=== PATIENT | female | born 1990 | race Caucasian/White ===

== ENCOUNTER 2017-05-29 13:57 | Outpatient (RCR) | payer OTHER ==
[~2017-05-29 13:57] MED LIST: DEPO-PROVER150 MG/M1 IM
== END 2017-06-08 13:48 | disposition still patient (30) ==
LOC: WSOH 13:57
DX: M25.561 Pain in right knee (principal)

== ENCOUNTER 2020-01-25 12:08 | Emergency (ER) | payer BC ==
[~2020-01-25] VITALS: Ht 172.7 cm; Wt 59.1 kg
[2020-01-25 12:15] VITALS: TEMP 98.1
[2020-01-25 12:35] LABS: COLLECTION METHOD CLEAN CATCH
[2020-01-25 12:42] LABS: MUCOUS Present /lpf; PH 7 (5-8); SQUAMOUS EPITHELIAL 0-2 /hpf; URINE APPEARANCE Clear; URINE BACTERIA None Seen /hpf; URINE BILIRUBIN Negative (NEGATIVE); URINE BLOOD Negative (NEGATIVE); URINE COLOR Yellow; URINE GLUCOSE Negative (NEGATIVE); URINE KETONE Negative (NEGATIVE); URINE LEUKOCYTE ESTERASE Negative (NEGATIVE); URINE NITRATE Negative (NEGATIVE); URINE PROTEIN(semi-quant) Negative (NEGATIVE); URINE RBC 0-2 /hpf; URINE UROBILINOGEN Negative (NEGATIVE)
[2020-01-25 13:03] LABS: BASO % 0.3 % (0.0-2.0); EOS # 0.1 (0.0-0.7); EOS % 0.7 % (0-4.0); GRAN # 4.9 (1.4-6.5); GRAN % 71.6 % (42.2-75.2); HEMOGLOBIN 13.1 g/dl (12.5-16.0); LYMPH # 1.3 (1.2-3.4); LYMPH % 19.2 % (20.0-51.0); MEAN CELL VOLUME 88 fl (80.0-100.0); MEAN CORPUSCULAR HEMOGLOBIN 29 pg (27.0-31.0); MEAN CORPUSCULAR HGB CONC 33 g/dl (33.0-37.0); MONO # 0.5 (0.1-0.6); MONO % 7.9 % (1.7-9.3); PLATELET COUNT 215 K/mm3 (130-400); RED BLOOD COUNT 4.53 M/mm3 (4.10-5.30); REDCELL DISTRIBUTION WIDTH-CV 13.2 % (11.5-14.5)
[2020-01-25 13:13] LABS: ALBUMIN 4.6 gm/dL (3.5-5.0); BILIRUBIN,TOTAL 0.4 mg/dL (0.0-1.0); C-REACTIVE PROTEIN 0.7 mg/dL (0.0-0.9); CALCIUM 9.8 mg/dL (8.4-10.2); CREATININE, serum 0.51 (0.52-1.25); TOTAL PROTEIN 7.6 gm/dL (6.4-8.2)
[2020-01-25] MEDS ORDERED: ULTRAM 50MG TAB50 MG PO (14:09)
[2020-01-25] MEDS ORDERED: ZOFRAN 4MG T4 MG/TAB PO (14:09)
[2020-01-25] MEDS ORDERED: NAPROSYN500 MG PO (14:10)
[2020-01-25 14:31] VITALS: BP 103/61; PULSE 74
== END 2020-01-25 14:36 | disposition home or self-care (01) ==
LOC: COL.ER 12:08
PROVIDERS: Nurse Practitioner Primary Care
DX: R10.32 Left lower quadrant pain (principal); F17.210 Nicotine dependence, cigarettes, uncomplicated; Z98.890 Other specified postprocedural states; Z90.89 Acquired absence of other organs
CPT/HCPCS: J1885; J2405; J7030; Q9967

== ENCOUNTER 2024-01-12 21:22 | Day surgery (SDC) | payer BC ==
[~2024-01-12] VITALS: Ht 172.7 cm; Wt 85.0 kg
[~2024-01-12 21:22] MED LIST changes: +ABILIFY 10MG TA10 MG PO; +CELEBREX 200MG200 MG PO; +CIPRO 500MG TA500 MG PO; +FLAGYL500 MG PO; +NAPROSYN500 MG PO; +NORCO 325 MG-51 TAB PO; +ONE DAILY ESSE0.5 MG PO; +PROTONIX20 MG PO; +ULTRAM 50MG TAB50 MG PO; +UNISOM SLEEPGEL50 MG PO; +VANTIN 200200 MG/TAB PO; +VITAMIND3 5000 PO; +ZOFRAN 4MG T4 MG/TAB PO; +ZOLOFT 100MG100 MG PO
[2024-01-12 21:55] LABS: BASO # 0.1 K/mm3 (0.0-0.2); BASO % 0.5 % (0.0-2.0); EOS # 0.2 K/mm3 (0.0-0.7); EOS % 1.4 % (0.0-4.0); GRAN # 11.3 K/mm3 (1.4-6.5); GRAN % 76.7 % (42.2-75.2); HEMATOCRIT 37.4 % (37.0-47.0); HEMOGLOBIN 11.9 g/dl (12.5-16.0); LYMPH # 1.8 K/mm3 (1.2-3.4); LYMPH % 12.3 % (20.0-51.0); MEAN CELL VOLUME 89 fl (80.0-100.0); MEAN CORPUSCULAR HEMOGLOBIN 28 pg (27-31); MEAN CORPUSCULAR HGB CONC 32 g/dl (33.0-37.0); MEAN PLATELET VOLUME 9.7 fl (7.4-10.4); MONO # 1.2 K/mm3 (0.1-0.6); MONO % 7.8 % (1.7-9.3); PLATELET COUNT 346 K/mm3 (130-400); RED BLOOD COUNT 4.22 M/mm3 (4.10-5.30); REDCELL DISTRIBUTION WIDTH-CV 14.1 % (11.5-14.5)
[2024-01-12] MEDS ORDERED: NS 1,000 ML IV ONE (22:00)
[2024-01-12] MEDS ORDERED: Ketorolac 15 MG/ML VIAL IV ONE (22:00)
[2024-01-12] MEDS ORDERED: fentaNYL 50 MCG/ML 2 ML VIAL IV ONE (22:00)
[2024-01-12 22:13] LABS: COLLECTION METHOD CLEAN CATCH
[2024-01-12 22:16] LABS: URINE APPEARANCE CLEAR (CLEAR/HAZY); URINE BLOOD NEGATIVE (NEGATIVE); URINE COLOR YELLOW (YELLOW); URINE GLUCOSE NEGATIVE (NEGATIVE); URINE KETONE NEGATIVE (NEGATIVE); URINE NITRATE NEGATIVE (NEGATIVE); URINE PROTEIN(semi-quant) NEGATIVE (NEGATIVE); URINE UROBILINOGEN 0.2 E.U/dL (0.2-1.0)
[2024-01-12 22:23] LABS: ALBUMIN 3.2 g/dL (3.5-5.0); BILIRUBIN,TOTAL 0.3 mg/dL (0.2-1.2); CALCIUM 9.7 mg/dL (8.4-10.2); CREATININE, serum 0.73 mg/dL (0.57-1.11); POTASSIUM 3.9 mEq/L (3.5-4.5); TOTAL PROTEIN 7.2 g/dl (6.2-8.1)
[2024-01-12] MEDS ORDERED: Iohexol 300 - 100 ML VIAL IV ONE (23:37)
[2024-01-13] VITALS (18 sets, daily range): BP systolic 106–133; BP diastolic 56–75; PULSE 65–132; TEMP 97.6–101.4
[2024-01-13] MEDS ORDERED: HUMIRA PEN40 MG/0.4 SQ (01:14)
[2024-01-13] MEDS ORDERED: Morphine 4 MG/ML VIAL IV PRN ×3 (01:30→10:45)
[2024-01-13] MEDS ORDERED: Ondansetron 4 MG/2 ML VIAL IV PRN ×3 (01:30→10:45)
[2024-01-13] MEDS ORDERED: LR 1,000 ML IV SCH (01:30)
[2024-01-13] MEDS ORDERED: Lidocaine PF 2% (20 MG/ML) 5 ML VIAL ONE (09:47)
[2024-01-13] MEDS ORDERED: fentaNYL 50 MCG/ML 5 ML VIAL ONE (09:47)
[2024-01-13] MEDS ORDERED: Ketorolac 30 MG/ML VIAL ONE (10:08)
[2024-01-13] MEDS ORDERED: dexAMETHasone 10 MG/ML VIAL ONE (10:16)
[2024-01-13] MEDS ORDERED: Ondansetron 4 MG/2 ML VIAL ONE (10:16)
[2024-01-13] MEDS ORDERED: fentaNYL 50 MCG/ML 1 ML SYRINGE/VIAL [PACU/SDC ONLY] IV PRN (10:30)
[2024-01-13] MEDS ORDERED: HYDROmorphone 1 MG/1 ML SYRINGE [PACU/SDC ONLY] IV PRN (10:30)
[2024-01-13] MEDS ORDERED: droPERidol 2.5 MG/ML 2 ML VIAL IV PRN (10:30)
[2024-01-13] MEDS ORDERED: Ibuprofen 600 MG TAB PO PRN (10:45)
[2024-01-13] MEDS ORDERED: Acetaminophen 325 MG TAB PO PRN (10:45)
--- NOTE | 2024-01-13 10:48 | NUR ---
Reaming Machine Tender met with patient and to discuss discharge planning. Patient known to this SW from previous admission. Patient verified that she and Tello Baird ([phone]) live in [place]. She sees Dr. Salvador as her PCP and uses [facility] pharmacy. Patient is active and independent and is employed at [employer]. Patient denies any discharge needs at this time. Discharge plan: Home
--- NOTE | 2024-01-13 11:27 | NUR ---
PT TO ROOM 328 PER BED WITH REPORT FROM JD NGUYEN [id number], PT IS A/O X4,LUNGS CTA, BOWEL SOUNDS PRESENT. GAUZE OVER INCISION WITH MESH PANTIES HOLDING IN PLACE. PERIANAL ABCESS DRAINED. IV TO LFA. GAVE SPRITE AND CRACKERS PER PT REQUEST.
[2024-01-14] VITALS (8 sets, daily range): BP systolic 96–111; BP diastolic 59–67; PULSE 64–87; TEMP 97.5–98
--- NOTE | 2024-01-14 05:54 | NUR ---
PT REPORTS SOME BLOODY DRAINAGE FROM RECTUM ON PERIPAD THIS AM, UP INDEPENDENTLY IN THE ROOM, TOLERATING REGULAR DIET, PAIN CONTROLLED WITH PO PAIN MEDS, AFEBRILE THIS SHIFT.
--- NOTE | 2024-01-14 07:55 | NUR ---
Patient resting in bed. Reports elevated pain to rectum. Requesting [place] PRN to be given. Patient has mesh underwear with pad. [place]in drain visulized. Drainage noted. She tolerated breakfast without nasuea. INT for antibioitcs as ordered. Will monitor
[2024-01-14] MEDS ORDERED: VANTIN 200200 MG/TAB PO (08:12)
[2024-01-14] MEDS ORDERED: ARIPiprazole 10 MG TAB PO SCH (09:00)
[2024-01-14] MEDS ORDERED: Sertraline 100 MG TAB PO SCH (09:00)
--- NOTE | 2024-01-14 13:22 | NUR ---
Initial visit; Patient appeared to be in pain and somewhat tearful though she stated when asked that she is a little better though she is in some pain. Spiral Tube Winder offered God's blessings and will keep Essence in her prayers.
--- NOTE | 2024-01-14 16:26 | NUR ---
Patient resting in bed with minimal needs. [place] for pain management. Awaiting to round. Will monitor
[2024-01-14] MEDS ORDERED: NORCO 325 MG-51 TAB PO (16:38)
--- NOTE | 2024-01-14 17:30 | NUR ---
Patient ready for discharge home. rounded and orders obtained. All dischrage education reviewed including medication list and last dose taken. As well as script for norco and medication safety. Patient aware of follow up appt and to call with questions and or cocnerns. Patient ambulated out with all belongings her family taking her home.
== END 2024-01-14 17:30 | disposition home or self-care (01) ==
LOC: COL.ER 21:22 → SURG 01-13 01:00 → SDCO 01-13 01:00 → SURG 01-13 01:00 → SDCO 01-14 17:30 → SURG 01-14 17:30
PROVIDERS: Emergency Medicine
DX: K61.1 Rectal abscess (principal); K51.90 Ulcerative colitis, unspecified, without complications; K21.9 Gastro-esophageal reflux disease without esophagitis; F17.290 Nicotine dependence, other tobacco product, uncomplicated
CPT/HCPCS: OP; G0378; J1100; J1170; J1885; J2270; J2405; J2543; J2704; J3010; J7030; J7120; Q9967

== ENCOUNTER → 2024-04-21 | Outpatient (CLI) | payer BC ==
[~2024-04-21] MED LIST changes: +HUMIRA PEN40 MG/0.4 SQ; +Iohexol 300 - 100 ML VIAL IV ONE; +NS 100 ML IV SCH
== END ==
LOC: COL.RAD 07:42
DX: N83.201 Unspecified ovarian cyst, right side (principal); K50.113 Crohn's disease of large intestine with fistula; Z98.890 Other specified postprocedural states
CPT/HCPCS: Q9967

== ENCOUNTER 2024-04-30 15:39 | Emergency (ER) | payer BC ==
[~2024-04-30] VITALS: Ht 172.7 cm; Wt 79.5 kg
[~2024-04-30 15:39] MED LIST changes: -Iohexol 300 - 100 ML VIAL IV ONE; -NS 100 ML IV SCH
[2024-04-30 15:53] VITALS: TEMP 98.6
[2024-04-30] MEDS ORDERED: NS 1,000 ML IV ONE (16:30)
[2024-04-30] MEDS ORDERED: Morphine 4 MG/ML VIAL IV ONE (16:45)
[2024-04-30] MEDS ORDERED: Ondansetron 4 MG/2 ML VIAL IV ONE (16:45)
[2024-04-30 16:46] LABS: BASO % 0.2 % (0.0-2.0); EOS % 0.3 % (0.0-4.0); GRAN # 7.5 K/mm3 (1.4-6.5); GRAN % 79.7 % (42.2-75.2); HEMATOCRIT 40.8 % (37.0-47.0); HEMOGLOBIN 13.5 g/dl (12.5-16.0); LYMPH # 1.3 K/mm3 (1.2-3.4); LYMPH % 13.7 % (20.0-51.0); MEAN CELL VOLUME 84 fl (80.0-100.0); MEAN CORPUSCULAR HEMOGLOBIN 28 pg (27-31); MEAN CORPUSCULAR HGB CONC 33 g/dl (33.0-37.0); MEAN PLATELET VOLUME 10.5 fl (7.4-10.4); MONO # 0.6 K/mm3 (0.1-0.6); MONO % 5.9 % (1.7-9.3); PLATELET COUNT 326 K/mm3 (130-400); RED BLOOD COUNT 4.84 M/mm3 (4.10-5.30); REDCELL DISTRIBUTION WIDTH-CV 13.2 % (11.5-14.5)
[2024-04-30 17:09] LABS: ALBUMIN 4.3 g/dL (3.5-5.0); BILIRUBIN,TOTAL 0.3 mg/dL (0.2-1.2); CREATININE, serum 0.73 mg/dL (0.57-1.11); POTASSIUM 3.4 mEq/L (3.5-4.5)
[2024-04-30] MEDS ORDERED: Iohexol 300 - 100 ML VIAL IV ONE (17:47)
[2024-04-30] MEDS ORDERED: NS 100 ML IV ONE (17:48)
[2024-04-30] MEDS ORDERED: NORCO 325 MG-51 TAB PO (18:49)
[2024-04-30] MEDS ORDERED: ZOFRAN ODT4 MG PO (18:50)
[2024-04-30 18:56] VITALS: BP 96/71; PULSE 94
[2024-04-30] MEDS ORDERED: Home HYDROcodone/Acetaminophen 5/325 MG #4 TABS/PACK PO ONE (19:00)
[2024-04-30] MEDS ORDERED: Home Ondansetron ODT 4 MG #2 ODT/PACK PO ONE (19:00)
== END 2024-04-30 19:07 | disposition home or self-care (01) ==
LOC: COL.ER 15:39
PROVIDERS: Physician Assistant
DX: K61.1 Rectal abscess (principal)
CPT/HCPCS: J2270; J2405; J7030; Q9967

== ENCOUNTER 2024-06-11 14:39 | Observation (INO) | payer BC ==
[~2024-06-11] VITALS: Ht 172.7 cm; Wt 73.0 kg
[~2024-06-11 14:39] MED LIST changes: +ZOFRAN ODT4 MG PO
[2024-06-11 15:15] LABS: BASO % 0.2 % (0.0-2.0); EOS # 0.1 K/mm3 (0.0-0.7); GRAN % 72.6 % (42.2-75.2); HEMATOCRIT 40.5 % (37.0-47.0); HEMOGLOBIN 13.8 g/dl (12.5-16.0); LYMPH # 1.2 K/mm3 (1.2-3.4); LYMPH % 14.7 % (20.0-51.0); MEAN CELL VOLUME 83 fl (80.0-100.0); MEAN CORPUSCULAR HEMOGLOBIN 28 pg (27-31); MEAN CORPUSCULAR HGB CONC 34 g/dl (33.0-37.0); MEAN PLATELET VOLUME 10.4 fl (7.4-10.4); MONO # 0.9 K/mm3 (0.1-0.6); MONO % 11.3 % (1.7-9.3); PLATELET COUNT 308 K/mm3 (130-400); RED BLOOD COUNT 4.86 M/mm3 (4.10-5.30); REDCELL DISTRIBUTION WIDTH-CV 13.3 % (11.5-14.5)
[2024-06-11] MEDS ORDERED: Ondansetron 4 MG/2 ML VIAL IV ONE (15:15)
[2024-06-11] MEDS ORDERED: NS 1,000 ML IV ONE ×2 (15:15)
[2024-06-11] MEDS ORDERED: Morphine 4 MG/ML VIAL IV ONE ×3 (15:15→19:15)
[2024-06-11 15:32] LABS: ALBUMIN 3.9 g/dL (3.5-5.0); BILIRUBIN,TOTAL 0.2 mg/dL (0.2-1.2); C-REACTIVE PROTEIN 0.71 mg/dL (0.00-0.50); CALCIUM 9.5 mg/dL (8.4-10.2); CREATININE, serum 1.79 mg/dL (0.57-1.11); MAGNESIUM 2.1 mg/dL (1.6-2.6); POTASSIUM 3.8 mEq/L (3.5-4.5); TOTAL PROTEIN 7.8 g/dl (6.2-8.1)
[2024-06-11 18:20] LABS: COLLECTION METHOD CLEAN CATCH
[2024-06-11 18:32] LABS: URINE APPEARANCE CLEAR (CLEAR/HAZY); URINE BLOOD 2+ (NEGATIVE); URINE COLOR YELLOW (YELLOW); URINE GLUCOSE NEGATIVE (NEGATIVE); URINE KETONE NEGATIVE (NEGATIVE); URINE NITRATE NEGATIVE (NEGATIVE); URINE PROTEIN(semi-quant) NEGATIVE (NEGATIVE); URINE UROBILINOGEN 0.2 E.U/dL (0.2-1.0)
[2024-06-11] MEDS ORDERED: NS 1,000 ML IV SCH (19:45)
[2024-06-11] MEDS ORDERED: BENTYL 20MG20 MG/TAB PO (20:30)
[2024-06-11] MEDS ORDERED: PROTONIX 40MG T40 MG PO (20:30)
[2024-06-11] MEDS ORDERED: XANAX .25M0.25 MG/TA PO (20:30)
[2024-06-11] MEDS ORDERED: Dicyclomine 10 MG CAP PO PRN (20:45)
[2024-06-11] MEDS ORDERED: HYDROmorphone 0.5 MG/0.5 ML SYRINGE IV PRN (20:45)
[2024-06-11] MEDS ORDERED: Ondansetron 4 MG/2 ML VIAL IV PRN (20:45)
[2024-06-11] MEDS ORDERED: ALPRAZolam 0.25 MG TAB PO PRN (20:45)
[2024-06-11] MEDS ORDERED: diphenhydrAMINE 25 MG CAP PO PRN (20:45)
[2024-06-11] MEDS ORDERED: ARIPiprazole 10 MG TAB PO SCH (21:00)
[2024-06-11 21:12] VITALS: BP 104/70; PULSE 82; TEMP 98.2
[2024-06-12] VITALS (14 sets, daily range): BP systolic 102–123; BP diastolic 64–77; PULSE 71–89; TEMP 97.6–98.8
[2024-06-12 06:21] LABS: BASO % 0.5 % (0.0-2.0); EOS # 0.1 K/mm3 (0.0-0.7); GRAN # 4.4 K/mm3 (1.4-6.5); GRAN % 68.9 % (42.2-75.2); LYMPH % 15.2 % (20.0-51.0); MEAN CELL VOLUME 85 fl (80.0-100.0); MEAN CORPUSCULAR HGB CONC 34 g/dl (33.0-37.0); MEAN PLATELET VOLUME 10.9 fl (7.4-10.4); MONO # 0.8 K/mm3 (0.1-0.6); MONO % 13.1 % (1.7-9.3); PLATELET COUNT 242 K/mm3 (130-400); RED BLOOD COUNT 4.09 M/mm3 (4.10-5.30); REDCELL DISTRIBUTION WIDTH-CV 13.8 % (11.5-14.5)
[2024-06-12 06:22] LABS: HEMATOCRIT 34.6 % (37.0-47.0); HEMOGLOBIN 11.6 g/dl (12.5-16.0); MEAN CORPUSCULAR HEMOGLOBIN 28 pg (27-31)
[2024-06-12 06:38] LABS: CALCIUM 8.8 mg/dL (8.4-10.2); CREATININE, serum 1.15 mg/dL (0.57-1.11); POTASSIUM 3.9 mEq/L (3.5-4.5)
--- NOTE | 2024-06-12 08:16 | NUR ---
Pt doing okay this morning. She states that she is having an increase in pain and nausea. PRN medications given. Pt tolerating liquids outside of the nausea. Ostomy is putting out output
--- NOTE | 2024-06-12 08:40 | NUR ---
poultry dressing worker met with pt to discuss discharge planning. She reports to live with her family in [place]. She sees Dr. Salvador for PCP needs and obtains medications from [facility] with no difficulties. She verified her insurance as [employer]. Pt is independent with ADLS and uses no DME. She does not have a a DPOA-HC and is agreeable to her , Tello [phone] being NOK. Pt voices no needs at this time. Discharge Plan: home
[2024-06-12] MEDS ORDERED: Sertraline 100 MG TAB PO SCH (09:00)
[2024-06-12] MEDS ORDERED: Pantoprazole 40 MG in NS 10 ML IV SCH (09:00)
--- NOTE | 2024-06-12 10:36 | NUR ---
Pt doing okay today, still having some complaints of abd cramping. Ostomy does have output, obtained sample and sent to lab per yesterdays order. Discussed plan of care. She did have her diet advanced and is aware of how to order meals.
--- NOTE | 2024-06-12 12:29 | NUR ---
D: Barkeep stopped by room on rounds. A: Pt was resting and content. Pt has no needs right now. P: Barkeep informed pt that if she needed anything from the director radio area to let her nurse know. Barkeep will follow up as needed.
--- NOTE | 2024-06-12 16:10 | NUR ---
Pt continues to do okay. She is tolerating diet although not taking much in. She did have a friend bring her a large smoothie which she has drank. Pt reports pain is okay at this time but still having off and on nausea, PRN zofran given. Pt continues to take care of her ostomy with no needs. Call light within reach, will continue to monitor
--- NOTE | 2024-06-12 20:39 | NUR ---
PATIENT RESTING IN BED WATCHING TV. REPORTS ABDOMINAL PAIN 02/17, IV DILAUDID ADMINISTERED. DENIES NAUSEA AT THIS TIME. CALL LIGHT WITHIN REACH. BED IS LOCKED AND IN LOW POSITION
[2024-06-13 00:35] VITALS: BP_SYST 102
[2024-06-13 03:37] VITALS: BP 100/67; PULSE 86; TEMP 98.4
[2024-06-13 04:10] VITALS: BP_SYST 100
[2024-06-13 07:33] LABS: BASO % 0.3 % (0.0-2.0); EOS # 0.1 K/mm3 (0.0-0.7); GRAN # 5.3 K/mm3 (1.4-6.5); GRAN % 74.4 % (42.2-75.2); HEMOGLOBIN 10.7 g/dl (12.5-16.0); LYMPH # 0.9 K/mm3 (1.2-3.4); LYMPH % 12.4 % (20.0-51.0); MEAN CELL VOLUME 84 fl (80.0-100.0); MEAN CORPUSCULAR HEMOGLOBIN 28 pg (27-31); MEAN CORPUSCULAR HGB CONC 34 g/dl (33.0-37.0); MEAN PLATELET VOLUME 11.1 fl (7.4-10.4); MONO # 0.8 K/mm3 (0.1-0.6); MONO % 11.6 % (1.7-9.3); PLATELET COUNT 240 K/mm3 (130-400); REDCELL DISTRIBUTION WIDTH-CV 13.7 % (11.5-14.5)
[2024-06-13 07:48] LABS: HEMATOCRIT 31.9 % (37.0-47.0)
[2024-06-13 07:50] VITALS: BP_SYST 111
[2024-06-13 08:04] VITALS: BP 111/73; PULSE 91; TEMP 98.1
--- NOTE | 2024-06-13 08:10 | NUR ---
Patient is A&Ox4 and is noted to be laying down in bed, ambulates independently. Patient reports abdominal pain 7/10 and burning. Diluidid 0.5mg IV push given for pain. IV is a 20G placed in the right AC with LR infusing at 75mL/h. Patient tolerating infusion well. Patient is currently tolerating clear liquids and states she will try drinking a smoothie this AM. Patient educated to call nurse for any new complaints. Pt verbalized understanding. Bed lowered and locked, call ma within reach.
[2024-06-13 08:46] LABS: CALCIUM 8.7 mg/dL (8.4-10.2); CREATININE, serum 1.03 mg/dL (0.57-1.11); POTASSIUM 3.4 mEq/L (3.5-4.5)
[2024-06-13] MEDS ORDERED: ROXICODONE 55 MG/TAB PO (10:43)
[2024-06-13] MEDS ORDERED: *Potassium Replacement Protocol MC SCH (10:45)
[2024-06-13] MEDS ORDERED: Potassium Bicarbonate/Citrate 20 MEQ Effervescent TAB PO SCH (11:00)
[2024-06-13 12:05] VITALS: BP 113/75; PULSE 90; TEMP 98.7
--- NOTE | 2024-06-13 12:30 | NUR ---
Discharge instructions, appointments and medications reviewed with patient and at bedside. Patient verbalized understanding of instructions. Right AC IV removed, catheter intact upon removal. Patient transported via wheelchair to private car with as charter driver and discharged from medical unit to home.
== END 2024-06-13 12:30 | disposition home or self-care (01) ==
LOC: COL.ER 14:39 → MEDICAL 19:37
PROVIDERS: Emergency Medicine; Nurse Practitioner Family; ADMIT Hospitalist
DX: K50.90 Crohn's disease, unspecified, without complications (principal); N17.9 Acute kidney failure, unspecified; E87.1 Hypo-osmolality and hyponatremia; E87.20 Acidosis, unspecified; E87.6 Hypokalemia; F32.A Depression, unspecified; F41.9 Anxiety disorder, unspecified; Z93.2 Ileostomy status; Z79.899 Other long term (current) drug therapy
CPT/HCPCS: G0378; J1171; J2270; J2405; J2470; J7030

== ENCOUNTER 2024-06-13 17:08 | Emergency (ER) | payer BC ==
[~2024-06-13] VITALS: Ht 172.7 cm; Wt 72.7 kg
[~2024-06-13 17:08] MED LIST changes: +BENTYL 20MG20 MG/TAB PO; +PROTONIX 40MG T40 MG PO; +ROXICODONE 55 MG/TAB PO; +XANAX .25M0.25 MG/TA PO
[2024-06-13] MEDS ORDERED: HYDROmorphone 0.5 MG/0.5 ML SYRINGE IV ONE ×3 (18:30→23:45)
[2024-06-13] MEDS ORDERED: Ondansetron 4 MG/2 ML VIAL IV ONE (18:30)
[2024-06-13 18:34] LABS: BASO % 0.2 % (0.0-2.0); EOS # 0.1 K/mm3 (0.0-0.7); EOS % 0.6 % (0.0-4.0); GRAN # 6.2 K/mm3 (1.4-6.5); GRAN % 75.8 % (42.2-75.2); HEMATOCRIT 33.3 % (37.0-47.0); HEMOGLOBIN 11.1 g/dl (12.5-16.0); LYMPH % 12.1 % (20.0-51.0); MEAN CELL VOLUME 85 fl (80.0-100.0); MEAN CORPUSCULAR HEMOGLOBIN 28 pg (27-31); MEAN CORPUSCULAR HGB CONC 33 g/dl (33.0-37.0); MONO # 0.9 K/mm3 (0.1-0.6); MONO % 10.9 % (1.7-9.3); PLATELET COUNT 260 K/mm3 (130-400); RED BLOOD COUNT 3.92 M/mm3 (4.10-5.30); REDCELL DISTRIBUTION WIDTH-CV 13.6 % (11.5-14.5)
[2024-06-13 18:52] LABS: ALANINE AMINOTRANSFERASE 18 U/L (0-55); ALBUMIN 3.2 g/dL (3.5-5.0); ALKALINE PHOSPHATASE 107 U/L (40-150); ANION GAP 13 mmol/L (7-16); AST,SGOT 19 U/L (5-34); BILIRUBIN,TOTAL 0.2 mg/dL (0.2-1.2); C-REACTIVE PROTEIN 2.18 mg/dL (0.00-0.50); CALCIUM 9.1 mg/dL (8.4-10.2); CHLORIDE 109 mEq/L (98-107); GLUCOSE 113 mg/dL (70-99); POTASSIUM 3.3 mEq/L (3.5-4.5); SODIUM 139 mEq/L (136-145); TOTAL PROTEIN 6.3 g/dl (6.2-8.1)
[2024-06-13 18:53] LABS: BLOOD UREA NITROGEN < 5 mg/dL (7-19)
[2024-06-13] MEDS ORDERED: NS 1,000 ML IV ONE ×2 (19:30→20:30)
[2024-06-13 20:12] LABS: COLLECTION METHOD CLEAN CATCH
[2024-06-13 20:19] LABS: PH 5.5 (5.0-8.5); URINE APPEARANCE CLEAR (CLEAR/HAZY); URINE BLOOD 2+ (NEGATIVE); URINE COLOR YELLOW (YELLOW); URINE GLUCOSE NEGATIVE (NEGATIVE); URINE KETONE NEGATIVE (NEGATIVE); URINE NITRATE NEGATIVE (NEGATIVE); URINE PROTEIN(semi-quant) NEGATIVE (NEGATIVE); URINE UROBILINOGEN 0.2 E.U/dL (0.2-1.0)
[2024-06-13 21:33] VITALS: TEMP 98.8
[2024-06-14] MEDS ORDERED: Ondansetron 4 MG/2 ML VIAL IV ONE (01:30)
[2024-06-14 02:30] VITALS: BP 126/94; PULSE 76
== END 2024-06-14 02:30 | disposition short-term general hospital (02) ==
LOC: COL.ER 17:08
PROVIDERS: Nurse Practitioner
DX: K50.90 Crohn's disease, unspecified, without complications (principal); Z87.891 Personal history of nicotine dependence
CPT/HCPCS: J1171; J2405; J7030